=== PATIENT | male | born 1990 | race American Indian/Alaskan Native ===

== ENCOUNTER 2016-05-23 03:11 | Emergency (ER) | payer OTHER ==
--- NOTE | 2016-05-23 09:43 | Cat Scan Report ---
CT of the abdomen and pelvis without contrast. Findings: The liver, spleen, pancreas, and gallbladder are normal. The right kidney is normal in size and configuration. There is a 3 mm stone in the lower pole of the right kidney with no evidence of hydronephrosis. The left kidney is pelvic in location. There are 2 stones at the ureteropelvic junction each measuring 4 mm in diameter. A 3 mm stone and a 1 mm stone are seen more centrally in the left kidney. No ureteral stones are identified. There are no pelvic visceral anomalies. Impression: Multiple bilateral nephrolithiasis, more numerous on the left with 2 stones seen at the ureteropelvic junction, but no definite hydronephrosis. The left kidney is pelvic in location.
[2016-05-23] MEDS ORDERED: TORADOL IV ONE (10:50)
[2016-05-23] MEDS ORDERED: SUBLIMAZE IV ONE (10:50)
[2016-05-23] MEDS ORDERED: ZOFRAN IV ONE (10:50)
--- NOTE | 2016-05-23 11:01 | Emergency Department Report ---
HPI - General Chief Complaint: Abdominal Pain Time Seen by Provider: 05/23/16 10:42 - HPI HPI: Room 9 The patient is a 25-year-old male presenting with chief complaint of abdominal pain. The patient states last night he developed pain in the left lower quadrant consistent with previous kidney stones. Patient states the pain worsened at 02:30. The patient describes the pain as burning and sharp in nature. The patient states the pain has been constant. Patient does admit to nausea and vomiting. Patient denies dysuria, hematuria or fever. The patient currently gives his pain a score of 25/10 Location: Left lower quadrant Duration: Constant since last night Quality: Burning, sharp Severity: 25/10 Modifying factors: [see above] Context: [see above] Mode of transportation: Unknown ED Past Medical Hx - Past Medical History Previous Medical History?: No Hx Kidney Stones: Yes - Surgical History Additional Surgical History: Kidney stone removal - Family History Family history: no significant - Social History Smoking Status: Current Every Day Smoker (1/5 pack per day) Substance Use Type: None (denies illicit drug use) - Medications Home Medications: Home Medications Medication Instructions Recorded Confirmed Last Taken Type Sulfamethoxazole/Trimethoprim 1 each PO BID #20 tablet 05/05/14 Unknown Rx [Bactrim Ds] Ketorolac [Toradol] 10 mg PO Q6H PRN #16 tablet 05/23/16 Unknown Rx Promethazine [Phenergan TAB] 25 mg PO Q6HR PRN #20 tab 05/23/16 Unknown Rx Promethazine [Phenergan] 25 mg HI Q6HR PRN #5 supp.rect 05/23/16 Unknown Rx oxyCODONE /ACETAMINOPHEN [Percocet 1 - 2 tab PO Q6HR PRN #14 tablet 05/23/16 Unknown Rx 5/325] ED Review of Systems ROS: Stated complaint: kidney stones Other details as noted in HPI Comment: All other systems reviewed and negative Constitutional: denies: chills, fever Eyes: denies: eye pain, eye discharge, vision change ENT: denies: ear pain, throat pain Respiratory: denies: cough, shortness of breath, wheezing Cardiovascular: denies: chest pain, palpitations Endocrine: no symptoms reported Gastrointestinal: abdominal pain, nausea, vomiting Genitourinary: denies: urgency, dysuria, hematuria Musculoskeletal: back pain Skin: denies: rash, lesions Neurological: denies: headache, weakness, paresthesias Psychiatric: denies: anxiety, depression Hematological/Lymphatic: denies: easy bleeding, easy bruising Physical Exam - Physical Exam Vital Signs: BP 142/88, pulse 79, respiratory rate 18, temperature 98.8F, SPO2 99% on room air Physical Exam: GENERAL: The patient is well-developed well-nourished male lying on stretcher not appearing to be in acute distress. [] HEENT: Normocephalic. Atraumatic. Extraocular motions are intact. Patient has moist mucous membranes. NECK: Supple. Trachea midline CHEST/LUNGS: Clear to auscultation. There is no respiratory distress noted. HEART/CARDIOVASCULAR: Regular. There is no tachycardia. There is no gallop rub or murmur. ABDOMEN: Abdomen is soft, with tenderness to palpation only in the left upper and left lower quadrants. Patient has normal bowel sounds. There is no abdominal distention. SKIN: There is no rash. There is no edema. There is no diaphoresis. NEURO: The patient is awake, alert, and oriented. The patient is cooperative. The patient has normal speech MUSCULOSKELETAL: There is left CVA tenderness. There is no evidence of acute injury. ED Medical Decision Making - Lab Data WBC 6.7, globin 15, hematocrit 47, platelets 313 Sodium 139, potassium 4.16, chloride 101.4, CO2 27, BUN 7, creatinine 0.8, glucose 99, calcium 9.7 Urinalysis reveals: Negative leukocyte esterase, negative nitrites, 3 WBCs, 594 rbc's - Radiology Data Radiology results: report reviewed (CT abdomen and pelvis), image reviewed (CT abdomen and pelvis) CT abdomen and pelvis (read by radiologist)-multiple bilateral nephrolithiasis, more numerous on the left with 2 stones seen at the ureteropelvic junction, but no definite hydronephrosis. The left kidney is pelvic in location. - Differential Diagnosis renal colic, diverticulitis, UTI Critical care attestation.: If time is entered above; I have spent that time in minutes in the direct care of this critically ill patient, excluding procedure time. ED Disposition Clinical Impression: Acute left flank pain, Renal colic on left side Disposition: DISCHARGED TO HOME OR SELFCARE Is pt being admited?: No Does the pt Need Aspirin: No Condition: Stable Instructions: Renal Colic (ED) Additional Instructions: Return to the emergency department immediately should you develop worsening symptoms, fever, inability to tolerate food or liquid or any other concerns. Prescriptions: Ketorolac [Toradol] 10 mg PO Q6H PRN #16 tablet PRN Reason: Pain oxyCODONE /ACETAMINOPHEN [Percocet 5/325] 1 - 2 tab PO Q6HR PRN #14 tablet PRN Reason: Pain Promethazine [Phenergan TAB] 25 mg PO Q6HR PRN #20 tab PRN Reason: Nausea Promethazine [Phenergan] 25 mg HI Q6HR PRN #5 supp.rect PRN Reason: Vomiting Referrals: PRIMARY CARE,MD [Primary Care Provider] - 3-5 Days DARRYL FARR MD [Staff Physician] - [facility] (Dr. Farr is a urologist. Please follow up with him for further evaluation) Time of Disposition: 11:07
[2016-05-23 11:34] VITALS: BP 138/85
== END 2016-05-23 11:44 | disposition home or self-care (01) ==
LOC: ED 03:11
DX: N23 Unspecified renal colic (principal); R10.32 Left lower quadrant pain; F17.200 Nicotine dependence, unspecified, uncomplicated
CPT/HCPCS: 74176; 96374; 96375; 99283; J1885; J2405; J3010

== ENCOUNTER 2016-05-30 05:15 | Emergency (ER) | payer OTHER ==
[2016-05-30] MEDS ORDERED: ZOFRAN ONE (05:37)
[2016-05-30] MEDS ORDERED: TORADOL ONE (05:37)
[2016-05-30] MEDS ORDERED: TORADOL IV ONE (05:38)
[2016-05-30] MEDS ORDERED: ZOFRAN IV ONE (05:38)
[2016-05-30 06:23] LABS: Hematocrit 50.2 % (35.5-45.6); Hemoglobin 16.7 gm/dl (11.8-15.2); Mean Corpuscular HGB Conc 33 % (32-34); Mean Corpuscular Hemoglobin 31 pg (28-32); Mean Corpuscular Volume 91 fl (84-94); Platelet Count 347 K/mm3 (140-440); Red Blood Count 5.49 M/mm3 (3.65-5.03); Red Cell Distribution Width 13.4 % (13.2-15.2); White Blood Count 9.7 K/mm3 (4.5-11.0)
--- NOTE | 2016-05-30 06:29 | Cat Scan Report ---
FINAL REPORT PROCEDURE: CT ABDOMEN PELVIS WO CON TECHNIQUE: Computerized axial tomography of the abdomen and pelvis was performed without intravenous contrast. This study is performed without intravascular contrast material and its sensitivity for abdominal and pelvic pathology, including neoplasms, inflammation, abscess, free fluid, thrombosis, arterial dissection and infarction, is reduced compared with a contrast enhanced study. HISTORY: flank pain COMPARISON: 05/05/2014 FINDINGS: Visualized lower thorax: No significant abnormality. Liver: Normal size and attenuation. Spleen: Normal size and attenuation. Gallbladder and biliary system: Normal. Pancreas: Normal. Adrenals: Normal. Kidneys: The right kidney has a normal size. There are few small 1-2 millimeter calcifications in the right corticomedullary region of the kidney. No hydronephrosis. No hydroureter is seen. No renal masses. The left kidney is identified in the upper left pelvis. No hydronephrosis is seen. There are a few small calcifications the largest measuring 4 millimeters in the left corticomedullary region.. GI tract: The stomach is normal. The small bowel has a normal caliber. No obstruction, ileus or enteritis. The cecum, appendix region and colon are normal.. Lymph nodes and mesentery: Normal. Vasculature: Normal. Bladder: Normal. Reproductive organs: Normal. Peritoneum: No free fluid. Musculoskeletal structures: No significant abnormality. Other: None. IMPRESSION: There is no evidence of intestinal urinary tract obstruction. No ileus or enteritis. Bilateral renal calculi are noted. No hydronephrosis. The left kidney is identified in the upper pelvis..
[2016-05-30 06:43] LABS: Anion Gap 19 mmol/L; Blood Urea Nitrogen 10 mg/dL (9-20); Calcium 10.3 mg/dL (8.4-10.2); Carbon Dioxide 23 mmol/L (22-30); Chloride 98.5 mmol/L (98-107); Glucose 134 mg/dL (75-100); Potassium 3.6 mmol/L (3.6-5.0); Sodium 137 mmol/L (137-145)
[2016-05-30] MEDS ORDERED: MORPHINE IV ONE (06:54)
[2016-05-30] MEDS ORDERED: NACL 0.9% 1000 ML 1,000 ML IV ONE (06:54)
--- NOTE | 2016-05-30 06:58 | Emergency Department Report ---
ED Abdominal Pain HPI - General Chief Complaint: Abdominal Pain Stated Complaint: ABD PAIN/POSS KIDNEY STONES Time Seen by Provider: 05/30/16 06:14 Source: patient, family Mode of arrival: Wheelchair Limitations: No Limitations - History of Present Illness Initial Comments: 25-year-old male presents to the emergency department complaining of left-sided abdominal pain. Patient reports acute onset of pain approximately 2 AM this morning. Pain awoke him from sleep. Patient describes a stabbing pain in his left lower abdomen that does not radiate. Patient has a history of kidney stones, and states that this feels the same as previous kidney stones. He reports nausea and vomiting. There has been no fever. He also denies seeing blood in his urine. There are no other complaints. MD Complaint: abdominal pain -: Sudden, During the night Location: LLQ Radiation: none Migration to: no migration Severity: severe Severity scale (0 -10): 10 Quality: stabbing Consistency: constant Improves With: nothing Worsens With: nothing Associated Symptoms: nausea, vomiting - Related Data Previous Rx's Medication Instructions Recorded Last Taken Type oxyCODONE /ACETAMINOPHEN [Percocet 1 - 2 tab PO Q6HR PRN #14 tablet 05/30/16 Unknown Rx 5/325] Allergies Allergy/AdvReac Type Severity Reaction Status Date / Time No Known Allergies Allergy Verified 05/05/14 12:24 ED Review of Systems ROS: Stated complaint: ABD PAIN/POSS KIDNEY STONES Other details as noted in HPI Comment: All other systems reviewed and negative Gastrointestinal: abdominal pain, nausea, vomiting ED Past Medical Hx - Past Medical History Previous Medical History?: Yes Hx Kidney Stones: Yes - Surgical History Past Surgical History?: Yes Additional Surgical History: Kidney stone removal - Family History Family history: no significant - Social History Smoking Status: Current Every Day Smoker Substance Use Type: None - Medications Home Medications: Home Medications Medication Instructions Recorded Confirmed Last Taken Type oxyCODONE /ACETAMINOPHEN [Percocet 1 - 2 tab PO Q6HR PRN #14 tablet 05/30/16 Unknown Rx 5/325] ED Physical Exam - General Limitations: No Limitations General appearance: alert, in distress (mild distress secondary for pain) - Head Head exam: Present: atraumatic, normocephalic - Eye Eye exam: Present: normal appearance, PERRL, EOMI - ENT ENT exam: Present: normal exam, normal orophraynx, mucous membranes moist - Neck Neck exam: Present: normal inspection, full ROM. Absent: tenderness - Respiratory Respiratory exam: Present: normal lung sounds bilaterally, respiratory distress (tachypnea noted) - Cardiovascular Cardiovascular Exam: Present: normal rhythm, tachycardia, normal heart sounds - GI/Abdominal GI/Abdominal exam: Present: soft, tenderness (mild tenderness to palpation of the left lower quadrant), normal bowel sounds. Absent: distended, guarding, rebound - Extremities Exam Extremities exam: Present: normal inspection, full ROM. Absent: tenderness - Back Exam Back exam: Present: normal inspection, full ROM. Absent: tenderness - Neurological Exam Neurological exam: Present: alert, oriented X3. Absent: motor sensory deficit - Skin Skin exam: Present: warm, dry, intact ED Course Vital Signs 05/30/16 05/30/16 05/30/16 05:43 06:00 06:30 Temperature 97.8 F Pulse Rate 104 H Respiratory 29 H 22 18 Rate Blood Pressure [Left] Blood Pressure 144/77 [Right] O2 Sat by Pulse 100 Oximetry 05/30/16 05/30/16 07:24 07:37 Temperature 98.8 F Pulse Rate 90 Respiratory 18 18 Rate Blood Pressure 123/80 [Left] Blood Pressure [Right] O2 Sat by Pulse 99 Oximetry - Reevaluation(s) Reevaluation #1: 05/30/16 06:58 Patient reports moderate relief with IV Zofran and IV Toradol. He states his pain is still present somewhat. Giving additional fluids and IV morphine. Reevaluation #2: 05/30/16 08:34 Patient reports complete relief of pain with IV morphine. Patient will be discharged home at this time to follow up with urology. ED Medical Decision Making - Lab Data Result diagrams: 05/30/16 06:17 05/30/16 06:17 - Differential Diagnosis kidney stone, UTI Critical care attestation.: If time is entered above; I have spent that time in minutes in the direct care of this critically ill patient, excluding procedure time. ED Disposition Clinical Impression: Renal colic on left side Disposition: DISCHARGED TO HOME OR SELFCARE Is pt being admited?: No Condition: Stable Instructions: Kidney Stones (ED) Prescriptions: oxyCODONE /ACETAMINOPHEN [Percocet 5/325] 1 - 2 tab PO Q6HR PRN #14 tablet PRN Reason: Pain Referrals: DWAYNE MANZO MD [Staff Physician] - 3-5 Days Time of Disposition: 08:35
[2016-05-30 07:25] VITALS: BP 123/80
[2016-05-30 07:57] LABS: Bacteria,Urine 1+ /HPF (Negative); Bilirubin,Urine NEG (Negative); Blood,Urine LG (Negative); Ketones,Urine 20 mg/dL (Negative); Leukocyte Esterase,Urine TR (Negative); Mucus,Urine 3+ /HPF; Nitrite,Urine NEG (Negative); Urobilinogen,Urine < 2.0 mg/dL (<2.0)
[2016-05-30 08:10] LABS: Protein,Urine >500 mg/dL (Negative); RBC,Urine > 182.0 /HPF (0.0-6.0)
[2016-05-30 09:56] LABS: Basophils % (Manual) 0 % (0.0-1.8); Blastocytes % (Manual) 0 %; Diff Status Complete; RBC Morphology Normal
== END 2016-05-30 09:11 | disposition home or self-care (01) ==
LOC: ED 05:15
DX: N23 Unspecified renal colic (principal); F17.200 Nicotine dependence, unspecified, uncomplicated
CPT/HCPCS: 36415; 74176; 80048; 81001; 85007; 85025; 96361; 96374; 96375; 99284; J1885; J2270; J2405; J7030